=== PATIENT | female | born 1965 | race African-American/Black ===

== ENCOUNTER 2019-05-27 15:01 | Emergency (ER) | payer OTHER ==
[~2019-05-27] VITALS: Ht 154.9 cm; Wt 91.2 kg
[2019-05-27 15:26] VITALS: BP 128/92
--- NOTE | 2019-05-27 15:57 | NUR ---
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
== END 2019-05-27 16:58 | disposition home or self-care (01) ==
LOC: ED 16:30
DX: G89.29 Other chronic pain (principal); M25.561 Pain in right knee; M25.562 Pain in left knee
CPT/HCPCS: 99283

== ENCOUNTER 2019-05-28 06:50 | Emergency (ER) | payer SELFPAY ==
[~2019-05-28] VITALS: Ht 154.9 cm; Wt 91.0 kg
[2019-05-28 06:54] VITALS: BP 143/71
--- NOTE | 2019-05-28 07:39 | NUR ---
ERMD AT BEDSIDE TO DISCUSS POC
--- NOTE | 2019-05-28 07:55 | NUR ---
DISCHARGE INSTRUCTIONS REVIEWED
== END 2019-05-28 08:14 | disposition home or self-care (01) ==
LOC: ED 07:41
DX: J00 Acute nasopharyngitis [common cold] (principal)
CPT/HCPCS: 99281